=== PATIENT | male | born 1990 | race Two or more races ===

== ENCOUNTER 2021-03-17 20:53 | Emergency (ER) | payer OTHER ==
[~2021-03-17] VITALS: Ht 175.3 cm; Wt 95.3 kg
[2021-03-17] MEDS ORDERED: LET TOPICAL SOLUTION 8 ML UDC TP ONE (21:15)
[2021-03-17] MEDS ORDERED: LET TOPICAL SOLUTION 8 ML UDC ONE (21:20)
--- NOTE | 2021-03-17 21:40 | NUR ---
EDMD at bedside to cleanse wound and apply gelfoam on skin avulsion to tip of lt first digit. Gelfoam taped in place for approx 15-20min.
[2021-03-17] MEDS ORDERED: HYDR-4209 PO (21:52)
[2021-03-17] MEDS ORDERED: CEPH500T PO (21:52)
[2021-03-17] MEDS ORDERED: CEphaleXIN 500 MG CAPSULE ONE (21:58)
--- NOTE | 2021-03-17 22:15 | NUR ---
PT WAS D/C'D TO HOME. D/C INSTRUCTIONS GIVEN TO THE PT BY DR DEL ROSARIO.
[2021-03-17 22:16] VITALS: BP 132/71
== END 2021-03-17 22:17 | disposition home or self-care (01) ==
LOC: ER 21:13
DX: S61.012A Laceration without foreign body of left thumb without damage to nail, initial encounter (principal); W27.4XXA Contact with kitchen utensil, initial encounter; Y93.G1 Activity, food preparation and clean up; Y92.512 Supermarket, store or market as the place of occurrence of the external cause; Y99.0 Civilian activity done for income or pay
CPT/HCPCS: A4663; J3590